=== PATIENT | female | born 1950 | race African-American/Black ===

== ENCOUNTER 2019-10-24 13:44 | Emergency (ER) | payer OTHER ==
[2019-10-24 14:27] LABS: Absolute Lymphocytes (CBC) 2.1 K/uL (0.7-4.9); Basophils % 0.8 % (0-1.3); Hematocrit 46.1 % (36.0-45.0); Lymphocytes % 27.2 % (15.3-44.8)
--- NOTE | 2019-10-24 14:45 | RAD REPORT ---
EXAM DESCRIPTION: RAD - Chest Single View - 10/24/2019 2:32 pm CLINICAL HISTORY: dizziness, shortness of breath COMPARISON: No comparisons TECHNIQUE: AP portable chest image was obtained 10/24/2019 2:32 pm . FINDINGS: Lungs are clear. Heart and vasculature are normal. No measurable pleural effusion and no p neumothorax. No acute bony abnormality seen. No acute aortic findings suspected. IMPRESSION: No acute cardiopulmonary process.
--- NOTE | 2019-10-24 14:45 | RAD REPORT ---
EXAM DESCRIPTION: CT - Head Brain Wo Cont - 10/24/2019 2:31 pm CLINICAL HISTORY: DIZZINESS, syncope COMPARISON: No comparisons TECHNIQUE: Axial 5 mm thick images of the head were obtained without IV contrast. All CT scans are performed using dose optimization technique as appropriate and may include automated exposure control or mA/KV adjustment according to patient size. FINDINGS: No intracranial hemorrhage, mass, edema or shift of mid-line structures. No acute infarcti on changes seen. No abnormal extra-axial fluid collections. No significant atrophy changes. Chronic i schemic changes minimal. Ventricles are normal. Mastoid air cells and visualized portions of the paranasal sinuses are clear. No acute bony findings. IMPRESSION: Negative non-contrast CT head examination for acute or significant finding.
[2019-10-24 14:57] LABS: ALT/SGPT 12 U/L (12-78); AST/SGOT 12 U/L (15-37); Albumin 3.6 g/dL (3.4-5.0); Alkaline Phosphatase 123 U/L (45-117); BUN Blood Urea Nitrogen 13 mg/dL (7-18); Bicarbonate 27 mmol/L (21-32); Bilirubin Direct 0.1 mg/dL (0-0.2); Bilirubin Total 0.3 mg/dL (0.2-1.0); Glucose Level 201 mg/dL (74-106); Magnesium 1.9 mg/dL (1.8-2.4); NT PRO-BNP 124 pg/mL (<125); Protein, Total 7.6 g/dL (6.4-8.2); Sodium Level 141 mmol/L (136-145); Troponin (Emerg Dept Use Only) < 0.02 ng/mL (0.0-0.045)
[2019-10-24] MEDS ORDERED: ONDANSETRON 4 MG/2 ML VIAL ONE (15:07)
[2019-10-24] MEDS ORDERED: MECLIZINE HCL 12.5 MG TAB ONE (15:07)
[2019-10-24 15:13] LABS: Protime INR 1.01
--- NOTE | 2019-10-24 16:25 | ER ---
Nurse's Notes [facility] Name: Lorri Del Cid Age: 68 yrs Sex: Female : 1950 Arrival Date: 10/24/2019 Time: 13:51 Bed 14 Private MD: Diagnosis: Dizziness and giddiness;Nausea Presentation: 10/24 13:51 Chief complaint: Patient states: "[place] [employer] [place] and started feeling dizzy aa5 and nauseated". Pt denies vomiting, denies any symptoms at this time". 13:51 Coronavirus screen: The patient has NOT traveled to [place] in the past 14 days. Ebola aa5 Screen: Patient negative for fever greater than or equal to 101.5 degrees Fahrenheit, and additional compatible Ebola Virus Disease symptoms. Initial Sepsis Screen: Does the patient meet any 2 criteria? No. Patient's initial sepsis screen is negative. Does the patient have a suspected source of infection? No. Patient's initial sepsis screen is negative. Risk Assessment: Do you want to hurt yourself or someone else? Patient reports no desire to harm self or others. 13:51 Acuity: YOANNA 3 aa5 13:51 Method Of Arrival: EMS: [facility] aa 13:51 Care prior to arrival: Glucose check: 294. aa5 14:02 Coronavirus screen: The patient has NOT traveled to [place] in the past 14 days. Proceed vc with normal triage procedures. Ebola Screen: Patient negative for fever greater than or equal to 101.5 degrees Fahrenheit, and additional compatible Ebola Virus Disease symptoms. Initial Sepsis Screen: Does the patient meet any 2 criteria? No. Patient's initial sepsis screen is negative. Does the patient have a suspected source of infection? No. Patient's initial sepsis screen is negative. Risk Assessment: Do you want to hurt yourself or someone else? Patient reports no desire to harm self or others. 14:02 Acuity: YOANNA 4 vc 14:02 Method Of Arrival: EMS: [facility] vc 14:10 Onset of symptoms was October 24, 2019. vc Triage Assessment: 14:10 General: Appears in no apparent distress. Behavior is calm, cooperative, appropriate vc for age. Pain: Denies pain. Historical: - Allergies: 14:04 No Known Allergies; aa5 - Home Meds: 14:04 metoprolol tartrate Oral [Active]; Metformin Oral [Active]; aa5 - PMHx: 14:04 Diabetes - NIDDM; Hypertension; aa5 - Immunization history:: Flu vaccine is up to date. - Social history:: Smoking status: Patient reports the use of cigarette tobacco products, 2-3 cigarettes a day . Screenin:01 Abuse screen: Denies threats or abuse. Nutritional screening: No deficits noted. vc Tuberculosis screening: No symptoms or risk factors identified. Fall Risk None identified. Assessment: 14:10 General: Appears in no apparent distress. uncomfortable, Behavior is calm, cooperative, vc appropriate for age. Pain: Denies pain. Neuro: Level of Consciousness is awake, alert, obeys commands. Cardiovascular: No deficits noted. Respiratory: Airway is patent Respiratory effort is even, unlabored, Respiratory pattern is regular, symmetrical. GI: No signs and/or symptoms were reported involving the gastrointestinal system. : No signs and/or symptoms were reported regarding the genitourinary system. EENT: No deficits noted. Derm: Skin is intact, is healthy with good turgor, Skin temperature is warm. Musculoskeletal: Circulation, motion, and sensation intact. Range of motion: intact in all extremities. 15:00 Reassessment: Patient and/or family updated on plan of care and expected duration. Pain vc level reassessed. Patient is alert, oriented x 3, equal unlabored respirations, skin warm/dry/pink. 16:00 Reassessment: Patient and/or family updated on plan of care and expected duration. Pain vc level reassessed. Patient is alert, oriented x 3, equal unlabored respirations, skin warm/dry/pink. Patient denies pain at this time. Patient states symptoms have improved. Vital Signs: 14:02 BP 133 / 85; Pulse 63; Resp 18; Temp 98(O); Pulse Ox 100% on R/A; vc 14:06 BP 144 / 82 Supine; Pulse 62; vc 14:08 BP 137 / 81 Sitting; Pulse 68; vc 14:09 BP 127 / 81 Standing; Pulse 72; vc 15:00 BP 135 / 78; Pulse 64; Resp 19; Pulse Ox 100% on R/A; vc 16:00 BP 126 / 71; Pulse 60; Resp 17; Pulse Ox 98% on R/A; vc ED Course: 13:51 Patient arrived in ED. aa5 13:51 Brennan Rabago MD is Attending Physician. rush 13:51 Brennan García PA is PHCP. cp 13:51 Arm band placed on. aa5 13:59 Becky Romano, RN is Primary Nurse. vc 14:02 Triage completed. aa5 14:22 Patient has correct armband on for positive identification. Placed in gown. Bed in low ca1 position. Call light in reach. Side rails up X 1. school lunch monitor on. Pulse ox on. NIBP on. Warm blanket given. 14:22 No provider procedures requiring assistance completed. Initial lab(s) drawn, by me, ca1 sent to lab. Inserted saline lock: 20 gauge in left antecubital area, using aseptic technique. Blood collected. 14:32 CT Head Brain wo Cont In Process Unspecified. EDMS 14:34 XRAY Chest (1 view) In Process Unspecified. EDMS 14:42 EKG done, by cardiovascular surgical tech. reviewed by Brennan HASTINGS. at1 14:47 Protime drawn by me and sent to lab. dh3 16:30 IV discontinued, intact, bleeding controlled, No redness/swelling at site. Pressure vc dressing applied. Administered Medications: 15:00 Drug: Meclizine 25 mg Route: PO; vc 16:09 Follow up: Response: No adverse reaction vc 15:00 Drug: Zofran (Ondansetron) 4 mg Route: IVP; Site: left antecubital; vc 16:08 Follow up: Response: No adverse reaction vc Outcome: 16:24 Discharge ordered by . cp 16:30 Discharged to home ambulatory, with family. vc 16:30 Condition: good 16:30 Discharge instructions given to patient, Instructed on discharge instructions, vc Demonstrated understanding of instructions, follow-up care, medications, Prescriptions given X 2. 16:33 Patient left the ED. vc Signatures: Dispatcher [employer] EDMS Tavon Davenport jb1 Brennan Rabago MD MD cha Calderon, Audri, RN RN aa5 Tamar Scott, senior premium auditor EKG Tat1 Brennan García PA PA cp Herrera, Deanna 3 Esme Molina RN RN ca1 Becky Romano, LIZET RN vc Corrections: (The following items were deleted from the chart) 14:50 14:49 PROTIME (+INR)+COAG.LAB.BRZ drawn and sent. jb1 jb1
--- NOTE | 2019-10-24 16:26 | EDPHYS ---
Physician Documentation [facility] Name: Lorri Del Cid Age: 68 yrs Sex: Female : 1950 Arrival Date: 10/24/2019 Time: 13:51 Bed 14 Private MD: ED Physician Brennan Rabago HPI: 10/24 13:55 This 68 yrs old Black Female presents to ER via EMS with complaints of Dizziness. cp 13:55 The patient presents with lightheadedness, sense of spinning. Onset: The cp symptoms/episode began/occurred just prior to arrival, and improved. Associated signs and symptoms: Pertinent positives: nausea, general weakness, Pertinent negatives: abdominal pain, chest pain, diaphoresis, focal weakness, headache, near-syncope, numbness, syncope. Severity of symptoms: in the emergency department the symptoms have improved markedly. Patient's baseline: Neuro: alert and fully oriented, Motor: no deficits, Ambulation: walks without assistance, Speech: normal. Historical: - Allergies: 14:04 No Known Allergies; aa5 - Home Meds: 14:04 metoprolol tartrate Oral [Active]; Metformin Oral [Active]; aa5 - PMHx: 14:04 Diabetes - NIDDM; Hypertension; aa5 - Immunization history:: Flu vaccine is up to date. - Social history:: Smoking status: Patient reports the use of cigarette tobacco products, 2-3 cigarettes a day . ROS: 14:00 Constitutional: Negative for body aches, chills, fever, poor PO intake. cp 14:00 Eyes: Negative for injury, pain, redness, and discharge. cp 14:00 ENT: Negative for drainage from ear(s), ear pain, sore throat, difficulty swallowing, difficulty handling secretions. 14:00 Cardiovascular: Negative for chest pain, palpitations. 14:00 Respiratory: Negative for cough, shortness of breath, wheezing. 14:00 Abdomen/GI: Positive for nausea, Negative for abdominal pain, vomiting, diarrhea, constipation, black/tarry stool, rectal bleeding. 14:00 Back: Negative for pain at rest, pain with movement. 14:00 : Negative for urinary symptoms. 14:00 Skin: Negative for rash. 14:00 Neuro: Positive for dizziness, general weakness, Negative for altered mental status, headache, syncope, near syncope. 14:00 All other systems are negative. Exam: 14:10 Constitutional: The patient appears in no acute distress, alert, awake, cp non-diaphoretic, non-toxic, well developed, well nourished. 14:10 Head/Face: Normocephalic, atraumatic. Eyes: Pupils equal round and reactive to light, cp extra-ocular motions intact. Lids and lashes normal. Conjunctiva and sclera are non-icteric and not injected. Cornea within normal limits. Periorbital areas with no swelling, redness, or edema. ENT: Nares patent. No nasal discharge, no septal abnormalities noted. Tympanic membranes are normal and external auditory canals are clear. Oropharynx with no redness, swelling, or masses, exudates, or evidence of obstruction, uvula midline. Mucous membranes moist. Chest/axilla: Normal chest wall appearance and motion. Nontender with no deformity. No lesions are appreciated. 14:10 Cardiovascular: Rate: normal, Rhythm: regular, Heart sounds: murmur, not appreciated, Edema: is not appreciated, JVD: is not appreciated. 14:10 Respiratory: the patient does not display signs of respiratory distress, Respirations: normal, no use of accessory muscles, no tachypnea, labored breathing, is not present, Breath sounds: are clear throughout, no decreased breath sounds, no wheezing. 14:10 Abdomen/GI: Inspection: abdomen appears normal, Bowel sounds: active, all quadrants, Palpation: abdomen is soft and non-tender, in all quadrants, rebound tenderness, is not appreciated, voluntary guarding, is not appreciated, involuntary guarding, is not appreciated. 14:10 Back: pain, is absent, ROM is normal. 14:10 Skin: cellulitis, is not appreciated, no rash present. 14:10 Neuro: Orientation: to person, place \T\ time. Mentation: is normal, Cerebellar function: is grossly normal, Motor: moves all fours, strength is normal, Sensation: is normal, negative [place]- Hallpike maneuver. 15:01 ECG was reviewed by the Attending Physician. cp Vital Signs: 14:02 BP 133 / 85; Pulse 63; Resp 18; Temp 98(O); Pulse Ox 100% on R/A; vc 14:06 BP 144 / 82 Supine; Pulse 62; vc 14:08 BP 137 / 81 Sitting; Pulse 68; vc 14:09 BP 127 / 81 Standing; Pulse 72; vc 15:00 BP 135 / 78; Pulse 64; Resp 19; Pulse Ox 100% on R/A; vc 16:00 BP 126 / 71; Pulse 60; Resp 17; Pulse Ox 98% on R/A; vc MDM: 13:[address] [facility] 16:23 Data reviewed: vital signs, nurses notes, lab test result(s), EKG, radiologic studies, cp CT scan, plain films. 16:23 Test interpretation: by ED physician or midlevel provider: ECG, plain radiologic cp studies, chest xray negative for infiltrates. Counseling: I had a detailed discussion with the patient and/or guardian regarding: the historical points, exam findings, and any diagnostic results supporting the discharge/admit diagnosis, lab results, radiology results, the need for outpatient follow up, a family practitioner, to return to the emergency department if symptoms worsen or persist or if there are any questions or concerns that arise at home. 16:24 Response to treatment: the patient's symptoms have markedly improved after treatment, cp and as a result, I will discharge patient. 10/24 14:08 Order name: Basic Metabolic Panel; Complete Time: 15:22 10/24 15:22 Interpretation: Normal except: CL 109; GLUC 201; GFR 51. 10/24 14:08 Order name: CBC with Diff; Complete Time: 14:51 10/24 14:51 Interpretation: Normal except: RBC 5.60; HCT 46.1; MCH 26.8. 10/24 14:08 Order name: LFT's; Complete Time: 15:22 10/24 15:22 Interpretation: Normal except: AST 12; ALK 123; GLOB 4.0; A/G 0.9. 10/24 14:08 Order name: Magnesium; Complete Time: 15:22 10/24 14:08 Order name: NT PRO-BNP; Complete Time: 15:22 10/24 14:08 Order name: PT-INR; Complete Time: 15:22 10/24 13:52 Order name: Orthostatics; Complete Time: 14:58 10/24 14:08 Order name: Troponin (emerg Dept Use Only); Complete Time: 15:22 10/24 15:23 Interpretation: Reviewed. 10/24 14:08 Order name: XRAY Chest (1 view); Complete Time: 14:51 10/24 14:51 Interpretation: Report review. 10/24 14:08 Order name: EKG; Complete Time: 14:09 10/24 14:08 Order name: Cardiac monitoring; Complete Time: 14:58 10/24 14:08 Order name: CT Head Brain wo Cont; Complete Time: 14:51 10/24 14:51 Interpretation: Report reviewed. 10/24 14:08 Order name: EKG - Nurse/Tech; Complete Time: 14:58 10/24 14:08 Order name: IV Saline Lock; Complete Time: 14:22 10/24 14:08 Order name: Labs collected and sent; Complete Time: 14:22 10/24 14:08 Order name: O2 Per Protocol; Complete Time: 14:22 10/24 14:08 Order name: O2 Sat Monitoring; Complete Time: 14:22 cp EC:01 Rate is 57 beats/min. Rhythm is regular. IN interval is normal. QRS interval is normal. cp QT interval is normal. T waves are Flattened in leads aVL, aVF. Interpreted by me. Reviewed by me. Administered Medications: 15:00 Drug: Meclizine 25 mg Route: PO; vc 16:09 Follow up: Response: No adverse reaction vc 15:00 Drug: Zofran (Ondansetron) 4 mg Route: IVP; Site: left antecubital; vc 16:08 Follow up: Response: No adverse reaction vc Disposition: 10/24/19 16:24 Discharged to Home. Impression: Dizziness and giddiness, Nausea. - Condition is Stable. - Discharge Instructions: Dizziness, Nausea, Adult. - Prescriptions for Meclizine 25 mg Oral Tablet - take 1 tablet by ORAL route every 8 hours As needed; 30 tablet. Zofran 4 mg Oral Tablet - take 1 tablet by ORAL route every 12 hours As needed; 20 tablet. - Medication Reconciliation Form, Thank You Letter, Antibiotic Education, Prescription Opioid Use form. - Follow up: Private Physician; When: 2 - 3 days; Reason: Recheck today's complaints. - Problem is new. - Symptoms are resolved. Addendum: 10/26/2019 17:47 Co-signature as Attending Physician, Brennan Rabago MD I agree with the assessment and c west plan of care. Signatures: Dispatcher [employer] EDBrennan Pruett MD MD cha Calderon, Audri RN RN aa5 Brennan García PA PA cp Becky Romano RN RN vc Corrections: (The following items were deleted from the chart) 10/24 16:25 16:24 10/24/2019 16:24 Discharged to Home. Impression: Dizziness and giddiness. cp Condition is Stable. Forms are Medication Reconciliation Form, Thank You Letter, Antibiotic Education, Prescription Opioid Use. Follow up: Private Physician; When: 2 - 3 days; Reason: Recheck today's complaints. Problem is new. Symptoms are resolved. cp 16:33 16:25 10/24/2019 16:24 Discharged to Home. Impression: Dizziness and giddiness; Nausea. vc Condition is Stable. Discharge Instructions: Dizziness, Nausea, Adult. Prescriptions for Meclizine 25 mg Oral Tablet - take 1 tablet by ORAL route every 8 hours As needed; 30 tablet, Zofran 4 mg Oral Tablet - take 1 tablet by ORAL route every 12 hours As needed; 20 tablet. and Forms are Medication Reconciliation Form, Thank You Letter, Antibiotic Education, Prescription Opioid Use. Follow up: Private Physician; When: 2 - 3 days; Reason: Recheck today's complaints. Problem is new. Symptoms are resolved. cp
[2019-10-24 16:41] VITALS: TEMP 98
[2019-10-24 16:51] VITALS: BP 126/71; O2SAT 98
--- NOTE | 2019-10-25 11:01 | EKG ---
Test Date: 2019-10-24 Test Time: 14:37:40 Website Project Manager: BERNABE MEASUREMENT RESULTS: Intervals: Rate: 57 NM: 156 QRSD: 74 QT: 404 QTc: 393 [place]: P: 30 NM: 156 QRS: 13 T: 133 INTERPRETIVE STATEMENTS: Sinus bradycardia Left ventricular hypertrophy with repolarization abnormality Abnormal ECG No previous ECG available for comparison Electronically Signed On 10-25-19 10:59:54 ELECTROMECHANICAL TECHNOLOGIST by Travis Smith
== END 2019-10-24 16:33 | disposition home or self-care (01) ==
LOC: ER 13:44
DX: R11.0 Nausea (principal); I10 Essential (primary) hypertension; E11.9 Type 2 diabetes mellitus without complications; Z72.0 Tobacco use
CPT/HCPCS: 93005; 85025; 80048; 36415; 83735; 85610; 80076; 84484; 83880; 70450; 71045; 96374; 99285; J2405

== ENCOUNTER 2022-10-13 06:51 | Day surgery (SDC) | payer OTHER ==
--- NOTE | 2022-10-10 15:41 | RAD REPORT ---
EXAM DESCRIPTION: RAD - Chest Pa And Lat (2 Views) - 10/10/2022 3:35 pm CLINICAL HISTORY: pre op Chest pain. COMPARISON: Chest Single View dated 10/24/2019 FINDINGS: The lungs are clear. The heart is normal in size. No displaced fractures. IMPRESSION: No acute or concerning finding suspected.
[2022-10-10 16:10] LABS: Hematocrit 40.5 % (36.0-45.0); Lymphocytes % 41.2 % (15.3-44.8); MCV 82.9 fL (80-100); MPV 8.7 fL (7.6-11.3); RBC Red Blood Cell Count 4.88 M/uL (3.86-4.86)
[2022-10-10 16:19] LABS: Protime INR 0.94
--- NOTE | 2022-10-11 12:59 | EKG ---
Test Date: 2022-10-10 Test Time: 15:02:50 Spectacle Truer: DIAMOND MEASUREMENT RESULTS: Intervals: Rate: 57 SC: 158 QRSD: 80 QT: 388 QTc: 377 [place]: P: 62 SC: 158 QRS: 68 T: 62 INTERPRETIVE STATEMENTS: Sinus bradycardia Nonspecific T wave abnormality Abnormal ECG Compared to ECG 10/24/2019 14:37:40 T-wave abnormality now present Left ventricular hypertrophy no longer present Early repolarization no longer present Electronically Signed On 10-11-22 12:58:27 PRINTED CIRCUIT PHOTOGRAPHER by Arjun Siddiqui
[2022-10-13] MEDS ORDERED: propofoL 200 MG/20 ML VIAL IV ONE (07:12)
[2022-10-13] MEDS ORDERED: FENTANYL CITR 100 MCG/2 ML ONE (07:13)
[2022-10-13] MEDS ORDERED: LIDOCAINE 2% MPF 5 ML VIAL ONE (07:14)
[2022-10-13] MEDS ORDERED: NS 0.9% VIAL 30 ML ONE (07:14)
[2022-10-13] MEDS ORDERED: LIDOCAINE 1% MPF 30 ML VIAL ONE (07:14)
[2022-10-13] MEDS ORDERED: MIDAZOLAM HCL 2 MG/2 ML INJ ONE (07:14)
[2022-10-13] MEDS ORDERED: CEFAZOLIN SODIUM 1 GM/VIAL ONE (07:22)
[2022-10-13] MEDS ORDERED: NA CHLORIDE 0.9% 1,000 ML ONE (07:25)
[2022-10-13] MEDS: BUPIVACAINE 0.25% PF 30 ML VIAL ONE ×2 (08:19→08:35)
--- NOTE | 2022-10-13 08:54 | P.BOP ---
Preoperative diagnosis: right trigger thumb Postoperative diagnosis: same Primary procedure: right thumb A1 devora release Aircraft Cylinder Mechanic: NONE,NONE Estimated blood loss: 2 cc Specimen: none Findings: see dictation Complications: None Implants: none Fluids & blood products: per anesthesia record; TT: 32 mins @ 300 mmHg Transferred to: Recovery Room Condition: Good
[2022-10-13 12:22] VITALS: BP 112/68; TEMP 96.8; O2SAT 95
--- NOTE | 2022-10-14 01:04 | OP ---
Date of Procedure: 10/13/2022 Surgeon: Trev Piña MD Preoperative Diagnosis: Right trigger thumb. Postoperative Diagnosis: Right trigger thumb. Procedure Performed: Trigger thumb release. Anesthesia: Niarada block. Complications: None. Implants: None. Tourniquet Time: 32 minutes at 300 mmHg. Indication For Procedure: Lorri is a 71-year-old female, who presented to my clinic with signs an d symptoms consistent with right trigger thumb. The patient failed conservative treatment measures i ncluding corticosteroid injection. I discussed with the patient at length risks and benefits associa rose marie with operative and nonoperative treatment. Given her continued symptoms, she elected to proceed with operative treatment including trigger thumb release. Description Of Procedure: After informed consent was obtained, the patient was identified in the pre operative holding area. The right thumb was marked. The patient was then brought back to the operat ing room, transferred to the operating table in supine fashion, and placed under Niarada block anesthesi a. The right upper extremity was then prepped and draped in usual sterile fashion. A time-out was i nitiated. The correct patient and procedure were confirmed and identified. The patient did receive her preoperative prophylactic antibiotics. Attention was first taken, where a 1.5 cm incision was ma de at the base of the thumb in line with the crease. Dissection was then taken to the flexor tendon sheath. The digital nerve was then gently retracted radially and the tendon sheath was exposed. A 1 5 blade was then used to make a longitudinal incision within the tendon sheath and a portion of the t endon sheath was excised. A1 devora was completely released. The thumb flexor tendon was then broug ht out through the incision. There was full excursion of the tendon without triggering noted. The w ound was then irrigated thoroughly with normal saline. A 5-0 Prolene was used to approximate the inc ision using a horizontal mattress fashion. Sterile dressings were applied. Tourniquet was let down. The patient was then awakened and transferred to PACU in stable condition. Postoperative Plan: The patient will be weightbearing as tolerated. She may work on range of motion exercises. She will follow up in my clinic in 10 days for wound check and suture removal. CV/MODL Voice ID: [id number] Report ID: [id number]
== END 2022-10-13 09:45 | disposition home or self-care (01) ==
LOC: OR 06:51
PROVIDERS: ATTEND Orthopaedic Surgery Sports Medicine
PROC: 0LN70ZZ Release Right Hand Tendon, Open Approach (ICD-10-PCS; principal; 2022-10-13 08:00)
DX: M65.311 Trigger thumb, right thumb (principal)
CPT/HCPCS: 93005; 85025; 80048; 36415; 85610; 82947; 85730; 71046; 26055; J2704; J2001 ×2; J2250; J3010; A4216; J7030; J0690